=== PATIENT | male | born 1985 | race Caucasian/White ===

== ENCOUNTER 2022-10-17 03:53 | Emergency (ER) | payer SELFPAY ==
[2022-10-17] MEDS ORDERED: Lorazepam 1 MG TAB ONE (04:23)
[2022-10-17] MEDS ORDERED: Ondansetron ODT 4 MG TAB ONE (04:23)
[2022-10-17] MEDS ORDERED: Boostrix 0.5 ML (Tdap) VIAL (>/=7 yrs of age) ONE (04:33)
[2022-10-17] MEDS ORDERED: Ziprasidone 20 MG VIAL ONE (04:45)
[2022-10-17 05:29] LABS: #Basophils 0.1 thou/uL (0.0-0.2); #Eosinphils 0.5 thou/uL (0.0-0.7); #Monocytes 0.4 thou/uL (0.11-0.59); #Neutrophils 5.2 thou/uL (1.40-6.50); %Basophils 0.7 % (0.0-1.0); %Eosinophils 5.2 % (0.0-10.0); %Lymphocytes 35.4 % (21.0-51.0); %Monocytes 4.4 % (0.0-10.0); %Neutrophils 54.1 % (42.0-75.0); Hemoglobin 14.9 g/dL (14.0-18.0); Mean Corpuscular HGB CONC 33.9 g/dL (32.0-36.0); Mean Corpuscular Hemoglobin 31.1 pg (27.0-31.0); Mean Corpuscular Volume 91.6 fl (78.0-98.0); Mean Platelet Volume 9.4 fL (7.4-10.4); Platelet Count 376 10x3/uL (130-400); RBC Distribution Width 12.9 % (11.5-14.5); Red Blood Cell (RBC) Count 4.79 mill/uL (4.70-6.10); White Blood Cell (WBC) Count 9.6 10x3/uL (4.8-10.8)
[2022-10-17 05:56] LABS: Acetaminophen Less than 10 mcg/mL (10.0-30.0); Salicylate Less than 8.0 mg/dL (15.0-30.0)
[2022-10-17 05:58] LABS: ALT (SGPT) 23 U/L (8-55); AST (SGOT) 26 U/L (5-34); Albumin 4.4 g/dL (3.5-5.0); Alkaline Phosphatase 76 U/L (40-110); Anion Gap 16 mmol/L (10-20); BUN (Urea Nitrogen) 11 mg/dL (8.9-20.6); Bilirubin, Total 0.3 mg/dL (0.2-1.2); CK (CPK) 226 U/L (30-200); Calc. Creatinine Clearance 0 mL/min (70-130); Calcium 9.4 mg/dL (7.8-10.44); Carbon Dioxide 23 mmol/L (22-29); Chloride 109 mmol/L (98-107); Estimated GFR 70; Globulin 2.9 g/dL (2.4-3.5); Glucose 97 mg/dL (70-105); Potassium 4.2 mmol/L (3.5-5.1); Protein, Total 7.3 g/dL (6.0-8.3); Sodium 144 mmol/L (136-145)
== END 2022-10-17 05:35 | disposition left against medical advice (07) ==
LOC: ERS 03:53
DX: Z53.29 Procedure and treatment not carried out because of patient's decision for other reasons (principal)
CPT/HCPCS: 36415; 80053; 80307; 82550; 85025; 90471; 90715; 99283; J3486; Q0162

== ENCOUNTER 2022-11-15 01:11 | Emergency (ER) | payer OTHER, SELFPAY ==
[2022-11-15] MEDS ORDERED: Ondansetron ODT 4 MG TAB ONE (03:20)
== END 2022-11-15 06:02 | disposition home or self-care (01) ==
LOC: ERS 01:11
DX: S09.90XA Unspecified injury of head, initial encounter (principal); F17.220 Nicotine dependence, chewing tobacco, uncomplicated; V63.5XXA Driver of heavy transport vehicle injured in collision with car, pick-up truck or van in traffic accident, initial encounter
CPT/HCPCS: 70450; 72125; Q0162

== ENCOUNTER 2023-04-09 11:20 | Emergency (ER) | payer OTHER, SELFPAY ==
[2023-04-09] MEDS ORDERED: Acetaminophen 500 MG TAB ONE (11:32)
[2023-04-09 12:29] LABS: SARS-CoV-2 NAA Rapid Test Not Detected (NotDetected)
== END 2023-04-09 13:02 | disposition home or self-care (01) ==
LOC: ERS 11:20
DX: J10.1 Influenza due to other identified influenza virus with other respiratory manifestations (principal); H66.009 Acute suppurative otitis media without spontaneous rupture of ear drum, unspecified ear; F17.220 Nicotine dependence, chewing tobacco, uncomplicated
CPT/HCPCS: 87081; 87430; 99283